=== PATIENT | female | born 1935 | race Two or more races ===

== ENCOUNTER 2018-06-11 17:22 | Inpatient (IN) | payer MEDICARE, BC ==
[~2018-06-11] VITALS: Ht 172.7 cm; Wt 72.6 kg
--- NOTE | ~2018-06-11 | MORECARE ---
CASE MANAGEMENT DISCHARGE SUMMARY PATIENT: KAREN CAROLINA UNIT: [id number] ADM DATE: 06/11/18 AGE: 82 : 36 SEX: F ROOM/BED: [facility] AUTHOR: TAWANDA,DOC PHYSICIAN: REFERRING PHYSICIAN: CAROL FLOYD MD DATE OF SERVICE: 06/15/18 Discharge Plan Patient Name: KAREN CAROLINA Facility: [facility]:[place] : 1935 Planned Disposition: Anticipated Discharge Date: Discharge Date: Expected LOS: Initial Reviewer: [email or web address] Initial Review Date: 06/12/2018 Generated: 06/15/18 11:27 am Comments DCP- Discharge Planning Updated by [email or web address]: Carol Olivo on 06/15/18 9:[address] SPOKE WITH A EMPLOYEE OF PATIENT AT THE [facility] ( [phone]) SHE STATED THAT SHE DID NOT HAVE AN OP REPORT BUT STATED THAT THE PATIENT HAD "A THROMBOSIS IN THE LEFT CAROTID, THEY OPENED IT UP REMOVED THE THROMBOSIS AND CLOSED IT" SHE STATED THAT THERE WAS NOT GRAFTS OR IMPLANTS USED SHE EMAILED AND FAXED THE RECORDS THAT SHE HAD SHE GAVE A NUMBER TO THE OR, I CALLED AND THERE WAS NOT AN ANSWER [phone] (PHONE NUMBER) I SPOKE WITH BETO SHARMA TO LET HER KNOW THE ABOVE DCP- Discharge Planning Updated by [email or web address]: Carol Olivo on 06/13/18 10:[address] I CALLED [facility] IN [facility] SPOKE WITH Abelardo PINA ([phone]) SHE STATED THAT SHE WOULD FAX ME THE OP REPORT HOSPITAL NUMBER IS [phone] YOU MUST DIAL [phone] THEN THE NUMBER I TOLD SOHA THE ABOVE CM WILL CONTINUE TO FOLLOW AND ASSIST DCP- Discharge Planning Updated by [email or web address]: Loly Lugo on 06/12/18 1:[address] Patient Name: KAREN CAROLINA Admission Status: Urgent Accout number: [id number] Admission Date: 06-11-2018 : 1935 Admission Diagnosis: Attending: MARIEL, Current LOS: 1 Anticipated DC Date: Planned Disposition: Primary Insurance: MEDICARE A & B Discharge Planning Comments: CM MET WITH PATIENT ABOUT DC PLANNING/NEEDS. PLANS TO DC TO HOME WITH AFTER SURGERY. WAS VISITING FAMILY IN [place] AND HAD A SURGICAL PROCEDURE, CAME BACK TO [place], AND THEN [facility] SURGICAL SITE BECAME INFECTED. SHE STATES PLAN IS TO HAVE SURGERY TOMORROW. [facility] DOESN'T KNOW OF ANY NEEDS AT THIS TIME. CM WILL FOLLOW AND ASSIST NEEDED WITH DC PLANNING/NEEDS. Certified Medical Aide: Loly Lugo DCPIA - Discharge Planning Initial Assessment Updated by [email or web address]: Loly Lugo on 06/12/18 2:30 pm * Is the patient Alert and Oriented? Yes * PCP MARIEL * [facility] * Preadmission Environment Home with Family * ADLs Independent * Equipment None * List name and contact numbers for known caregivers / representatives who currently or will assist patient after discharge: GABRIEL SANTIAGO, * Community resources currently utilized None * Can the patient safely return to the preadmission environment? Yes Last DP export: 06/13/18 10:38 Patient Name: KAREN CAROLINA Page 30503 at 1027 All edits/amendments must be made on the electronic document DICTATION DATE: 06/15/18 1027 WIPING CLOTH CUTTER: JEANCARLOS 06/15/18 1027 RPT#: [id number] DC DATE: STATUS: ADM IN [facility] [address] [place] [address] END OF REPORT
--- NOTE | ~2018-06-11 | OP ---
PATIENT NAME: KAREN CAROLINA MEDICAL RECORD: [id number] :[birth year] LOCATION:D.CVI D.CV02 ADMISSION DATE:06/11/18 SURGEON: SABRINA SOLANO MD DATE OF OPERATION: 06/13/2018 SURGEON: Sabrina Solano MD ROOFING LABORER: Saravanan Martell MD ANESTHESIA: General endotracheal, Dr. Swain. OPERATION PERFORMED: 1. Exploration of left carotid endarterectomy incision. 2. Debridement of skin and subcutaneous tissues. 3. Drainage utilizing a 7 fluted flat drain. POSTOPERATIVE DIAGNOSIS: Superficial wound infection. INDICATION FOR OPERATION: Draining left endarterectomy incision. FINDINGS OF THE OPERATION: The left carotid endarterectomy incision along the anterior border of the sternocleidomastoid was draining culture positive for Staph and the entire wound was erythematous. The exploration demonstrated the sternocleidomastoid sutured to the paratracheal tissues and was not infected or involved with the superficial infection. ESTIMATED BLOOD LOSS: Less than 50 mL. DESCRIPTION OF PROCEDURE: After informed consent, adequate preoperative medication evaluation, the patient was brought to the operating room, placed on the table in the supine position. After induction of general endotracheal anesthesia and application of appropriate monitoring devices, left neck, chest, both groins were prepped and draped in sterile field, utilizing Betadine scrub, alcohol, and Betadine solution. A Betadine-impregnated drape was also used. The draining site at the lower part of the incision was opened and examined, the wound was incised further cephalad without having to make an incision. The Monocryl was removed as was the subcutaneous Vicryl suture. There was separation and infection involving the edges of the wound and in the superficial plane. The wound had been closed by a first layer of sutures from the sternocleidomastoid to the paratracheal tissues. Deep to this plane was not involved with the infection, it was all superficial. Therefore, the skin underwent excision bilaterally as well as debridement of the deep subcutaneous tissues. The plane below the sternocleidomastoid was not entered. A #7 fluted flat drain was left in the wound and brought out through the base of the neck. Neck was again irrigated with copious amounts of antibiotic solution and normal saline. Hemostasis was achieved and the wound was closed in layers utilizing 3-0 PDS on the platysma. The skin was closed with interrupted nylon sutures. Sterile dressings were applied. The patient tolerated the procedure well and was transferred to cardiovascular recovery in stable condition. TRANSINT:[id number] Voice Confirmation ID: [id number] DOCUMENT ID: [id number] OPERATIVE REPORT [id number] KAREN CAROLINA EDWARD MD at 1216 CC: [id number] DICTATION DATE: 06/13/18 142 HEMODIALYSIS LAB TECHNICIAN: 06/13/18 1452 ADM IN [place] [id number] [place] [id number]
--- NOTE | ~2018-06-11 | MORECARE ---
CASE MANAGEMENT DISCHARGE SUMMARY PATIENT: KAREN CAROLINA UNIT: [id number] ADM DATE: 06/11/18 AGE: 82 : 36 SEX: F ROOM/BED: D.2223 AUTHOR: TAWANDA,DOC PHYSICIAN: REFERRING PHYSICIAN: CAROL FLOYD MD DATE OF SERVICE: 06/13/18 Discharge Plan Patient Name: KAREN CAROLINA Facility: [facility]:[place] : 1935 Planned Disposition: Anticipated Discharge Date: Discharge Date: Expected LOS: Initial Reviewer: [email or web address] Initial Review Date: 06/12/2018 Generated: 06/13/18 12:38 pm Comments DCP- Discharge Planning Updated by [email or web address]: Carol Olivo on 06/13/18 10:[address] I CALLED [facility] IN [facility] SPOKE WITH A YOVANI ([phone]) SHE STATED THAT SHE WOULD FAX ME THE OP REPORT HOSPITAL NUMBER IS [phone] YOU MUST DIAL [phone]+011 THEN THE NUMBER I TOLD MACI AND IMANI THE ABOVE CM WILL CONTINUE TO FOLLOW AND ASSIST DCP- Discharge Planning Updated by [id number]: Loly Lugo on 06/12/18 1:[address] Patient Name: KAREN CAROLINA Admission Status: Urgent Accout number: [id number] Admission Date: 06-11-2018 : 1935 Admission Diagnosis: Attending: MARIEL, Current LOS: 1 Anticipated DC Date: Planned Disposition: Primary Insurance: MEDICARE A & B Discharge Planning Comments: CM MET WITH PATIENT ABOUT DC PLANNING/NEEDS. [facility] PLANS TO DC TO HOME WITH AFTER SURGERY. WAS VISITING FAMILY IN [place] AND HAD A SURGICAL PROCEDURE, CAME BACK TO [place], AND THEN [facility] SURGICAL SITE BECAME INFECTED. SHE STATES PLAN IS TO HAVE SURGERY TOMORROW. [facility] DOESN'T KNOW OF ANY NEEDS AT THIS TIME. CM WILL FOLLOW AND ASSIST NEEDED WITH DC PLANNING/NEEDS. Senior Medical Transcriptionist: Loly Lugo DCPIA - Discharge Planning Initial Assessment Updated by [id number]: Loly Lugo on 06/12/18 2:30 pm * Is the patient Alert and Oriented? Yes * PCP MARIEL * [facility] * Preadmission Environment Home with Family * ADLs Independent * Equipment None * List name and contact numbers for known caregivers / representatives who currently or will assist patient after discharge: JACK, , * Community resources currently utilized None * Can the patient safely return to the preadmission environment? Yes Last DP export: 06/12/18 1:33 Patient Name: KAREN CAROLINA Page 61751 at 1138 All edits/amendments must be made on the electronic document DICTATION DATE: 06/13/18 113 FOREST SCIENCE PROFESSOR: JEANCARLOS 06/13/181137 RPT#: [id number] DC DATE: STATUS: ADM IN [facility] [address] [place] [address] END OF REPORT
--- NOTE | ~2018-06-11 | HP ---
PATIENT: KAREN CAROLINA MEDICAL RECORD: [id number] ACCOUNT: [id number] LOCATION:[facility]ino[facility] : [birth year] ADMISSION DATE: 06/11/18 PCP: CAROL FLOYD MD HISTORY AND PHYSICAL EXAMINATION CHIEF COMPLAINT: Abscess. HISTORY OF PRESENT ILLNESS: An 82-year-old white female, patient of mine, presents to clinic this afternoon with cellulitis of left neck incision and draining pus. She was recently in [place] on vacation and had a TIA, was admitted to the hospital there, later had a CEA done. The procedure was done at the bedside under local anesthesia. They do have some hospital records now with them; however, the records are in [place]onian. I spoke with Dr. Lopez over the phone. At this time, we will admit to the hospital and culture for further workup. REVIEW OF SYSTEMS: CONSTITUTIONAL: No fever or chills. HEENT: No ear pain or sore throat. CARDIOVASCULAR: No chest pain. RESPIRATORY: No cough or wheeze. GASTROINTESTINAL: No nausea, vomiting, or diarrhea. GENITOURINARY: No dysuria. MUSCULOSKELETAL: No back pain. SKIN: Positive for rash. NEUROLOGIC: No dizziness, headache, or weakness. PAST MEDICAL HISTORY: Carotid artery stenosis, TIA, and hypertension. PAST SURGICAL HISTORY: Left CEA and hysterectomy. MEDICATIONS: Atorvastatin 10 mg p.o. at bedtime, aspirin 81 mg a day, lisinopril with hydrochlorothiazide 10/12.5 two tabs daily. ALLERGIES: PENICILLIN. SOCIAL HISTORY: The patient lives with her at home here in [place]. Nonsmoker and nondrinker. FAMILY HISTORY: Noncontributory. PHYSICAL EXAMINATION: GENERAL: No acute distress. HEENT: Normocephalic. Left side of the neck with healing incision from CEA, is very erythematous, swollen, draining pus in 3 different spots. NECK: As above. CARDIOVASCULAR: Regular rate and rhythm. II/ systolic ejection murmur. LUNGS: Clear to auscultation bilaterally. ABDOMEN: Soft and nontender to palpation. Bowel sounds positive. GENITOURINARY: No Ward. MUSCULOSKELETAL: Full range of motion. NEUROLOGIC: Awake, alert, and oriented times 3. EXTREMITIES: No clubbing, cyanosis, or edema. ASSESSMENT: HISTORY AND PHYSICAL [id number] KAREN CAROLINA 1. Carotid artery stenosis, status post CEA 5 weeks ago in [place]. 2. TIA, on aspirin and statin. 3. Cellulitis of left-sided neck where CEA was. PLAN: We will admit the patient to the hospital. Consult Dr. Lopez. Get wound cultures, blood cultures, and CTA of carotid arteries. Start the patient on IV vancomycin. Other orders as on chart. TRANSINT:[id number] Voice Confirmation ID: [id number] DOCUMENT ID: [id number] CAROL FLOYD MD at 1814 CC: [id number] DICTATION DATE: 06/11/18 1650 ASSET PROTECTION REPRESENTATIVE: 06/11/18 1717 ADM IN [place] [id number] [place] [id number]
--- NOTE | ~2018-06-11 | MORECARE ---
CASE MANAGEMENT DISCHARGE SUMMARY PATIENT: KAREN CAROLINA UNIT: [id number] ADM DATE: 06/11/18 AGE: 82 : 36 SEX: F ROOM/BED: D.2223 AUTHOR: RUDI NEFF PHYSICIAN: REFERRING PHYSICIAN: CAROL FLOYD MD DATE OF SERVICE: 06/12/18 Discharge Plan Patient Name: KAREN CAROLINA Facility: [facility]:[place] : 1935 Planned Disposition: Anticipated Discharge Date: Discharge Date: Expected LOS: Initial Reviewer: [email or web address] Initial Review Date: 06/12/2018 Generated: 06/12/18 3:33 pm Comments DCP- Discharge Planning Updated by [email or web address]: Loly Lugo on 06/12/18 1:[address] Patient Name: KAREN CAROLINA Admission Status: Urgent Accout number: [id number] Admission Date: 06-11-2018 : 1935 Admission Diagnosis: Attending: MARIEL, Current LOS: 1 Anticipated DC Date: Planned Disposition: Primary Insurance: MEDICARE A & B Discharge Planning Comments: CM MET WITH PATIENT ABOUT DC PLANNING/NEEDS. PLANS TO DC TO HOME WITH AFTER SURGERY. WAS VISITING FAMILY IN [place] AND HAD A SURGICAL PROCEDURE, CAME BACK TO [place], AND THEN [facility] SURGICAL SITE BECAME INFECTED. SHE STATES PLAN IS TO HAVE SURGERY TOMORROW. [facility] DOESN'T KNOW OF ANY NEEDS AT THIS TIME. CM WILL FOLLOW AND ASSIST NEEDED WITH DC PLANNING/NEEDS. Oracle Developer: Loly Lugo DCPIA - Discharge Planning Initial Assessment Updated by [email or web address]: Loly Lugo on 06/12/18 2:30 pm * Is the patient Alert and Oriented? Yes * PCP MARIEL * [facility] * Preadmission Environment Home with Family * ADLs Independent * Equipment None * List name and contact numbers for known caregivers / representatives who currently or will assist patient after discharge: GABRIEL SANTIAGO, * Community resources currently utilized None * Can the patient safely return to the preadmission environment? Yes Patient Name: KAREN CAROLINA Page 41070 at 1433 All edits/amendments must be made on the electronic document DICTATION DATE: 06/12/181431 COMMUNICATION ANALYST: JEANCARLOS 06/12/181431 RPT#: [id number] DC DATE: STATUS: ADM IN [facility] [address] [place] [address] END OF REPORT
--- NOTE | ~2018-06-11 | MORECARE ---
CASE MANAGEMENT DISCHARGE SUMMARY PATIENT: KAREN CAROLINA UNIT: [id number] ADM DATE: 06/11/18 AGE: 82 : 36 SEX: F ROOM/BED: [facility] AUTHOR: TAWANDA,DOC PHYSICIAN: REFERRING PHYSICIAN: CAROL FLOYD MD DATE OF SERVICE: 06/19/18 Discharge Plan Patient Name: KAREN CAROLINA Facility: [facility]:[place] : 1935 Planned Disposition: Anticipated Discharge Date: Discharge Date: 06/19/2018 Expected LOS: Initial Reviewer: [email or web address] Initial Review Date: 06/12/2018 Generated: 06/19/18 4:38 pm DCP- Discharge Planning Updated by [id number]: Carol Olivo on 06/15/18 9:[address] SPOKE WITH A EMPLOYEE OF PATIENT AT THE [facility] ( [phone]) SHE STATED THAT SHE DID NOT HAVE AN OP REPORT BUT STATED THAT THE PATIENT HAD "A THROMBOSIS IN THE LEFT CAROTID, THEY OPENED IT UP REMOVED THE THROMBOSIS AND CLOSED IT" SHE STATED THAT THERE WAS NOT GRAFTS OR IMPLANTS USED SHE EMAILED AND FAXED THE RECORDS THAT SHE HAD SHE GAVE A NUMBER TO THE OR, I CALLED AND THERE WAS NOT AN ANSWER [phone] (PHONE NUMBER) I SPOKE WITH BETO SHARMA TO LET HER KNOW THE ABOVE DCP- Discharge Planning Updated by [email or web address]: Carol Olivo on 06/13/18 10:[address] I CALLED [facility] [place] [facility] SPOKE WITH A YOVANI ([phone]) SHE STATED THAT SHE WOULD FAX ME THE OP REPORT HOSPITAL NUMBER IS [phone] YOU MUST DIAL 9+011 THEN THE NUMBER I TOLD SOHA THE ABOVE CM WILL CONTINUE TO FOLLOW AND ASSIST DCP- Discharge Planning Updated by [email or web address]: Loly Lugo on 06/12/18 1:[address] Patient Name: KAREN CAROLINA Admission Status: Urgent Accout number: [id number] Admission Date: 06-11-2018 : 1935 Admission Diagnosis: Attending: MARIEL, Current LOS: 1 Anticipated DC Date: Planned Disposition: Primary Insurance: MEDICARE A & B Discharge Planning Comments: CM MET WITH PATIENT ABOUT DC PLANNING/NEEDS. PLANS TO DC TO HOME WITH AFTER SURGERY. WAS VISITING FAMILY IN [place] AND HAD A SURGICAL PROCEDURE, CAME BACK TO [place], AND THEN [facility] SURGICAL SITE BECAME INFECTED. SHE STATES PLAN IS TO HAVE SURGERY TOMORROW. DOESN'T KNOW OF ANY NEEDS AT THIS TIME. CM WILL FOLLOW AND ASSIST NEEDED WITH DC PLANNING/NEEDS. Stave Machine Tender: Loly Lugo DCPIA - Discharge Planning Initial Assessment Updated by [email or web address]: Loly Lugo on 06/12/18 2:30 pm * Is the patient Alert and Oriented? Yes * PCP MARIEL * [facility] * Preadmission Environment Home with Family * ADLs Independent * Equipment None * List name and contact numbers for known caregivers / representatives who currently or will assist patient after discharge: GABRIEL SANTIAGO, * Community resources currently utilized None * Can the patient safely return to the preadmission environment? Yes Coverage Notice Reviewer: [id number] Sabina Hall Notice Issued Date-Time: 06/19/2018 12:40 Notice Type: IM Discharge Notice Notice Delivered To: Patient Relationship to Patient: Self Dye Penetrant Testing Technician Name: Delivery Method: HAND - Hand Delivered Billie Days: Prior Verbal Notification: Recipient Understood Notice: Yes Recipient Signature: Yes Med Rec Note Co-signed by Attending: Coverage Notice Comment: Last DP export: 06/15/18 9:27 Patient Name: KAREN CAROLINA Page 56760 at 1539 All edits/amendments must be made on the electronic document DICTATION DATE: 06/19/181537 OVEN TECHNICIAN: JEANCARLOS 06/19/181537 RPT#: [id number] DC DATE:06/19/18 STATUS: DIS IN [facility] [address] [place] [address] END OF REPORT
[2018-06-11] MEDS ORDERED: PRINZIDE 20/12.1 TA1 PO (17:46)
[2018-06-11] MEDS ORDERED: LIPITOR10 MG PO (17:47)
[2018-06-11] MEDS ORDERED: COENZYME Q1050 MG PO (17:48)
[2018-06-11 18:00] VITALS: BP 164/74; BMI 23.6
[2018-06-11 18:37] LABS: BASOPHILS 0.3 % (0-2); EOSINOPHILS 6.3 % (0-7); HEMATOCRIT 40.2 % (36.0-48.0); HEMOGLOBIN 13.8 g/dL (12-16); IMMATURE GRANULOCYTES 0.3 % (0-5); MCH 31.6 pg (26.0-34.0); MCHC 34.3 g/dL (31.0-37.0); MEAN PLATELET VOLUME 8.8 fL (7.4-10.4); MONOCYTES 10.4 % (2-11); NEUTROPHILS 59.7 % (40-80); PLATELET COUNT 354 10x3/uL (130-400); RBC 4.37 10x6/uL (4.00-5.40); RDW 12.5 % (11.5-14.5); WBC 10.6 10x3/uL (4.8-10.8)
[2018-06-11 18:49] LABS: ALBUMIN 3.8 g/dL (3.4-5.0); ANION GAP 15.9 mmol/L (8-16); BILIRUBIN - TOTAL 0.24 mg/dL (0.2-1.3); CALCIUM 9.5 mg/dL (8.5-10.1); CREATININE - SERUM 0.8 mg/dL (0.6-1.3); POTASSIUM - SERUM 3.9 mmol/L (3.5-5.1); PROTEIN - SERUM 7.5 g/dL (6.4-8.2)
[2018-06-11 18:55] LABS: INR 0.9 (0.85-1.17); PROTIME 11.8 SECONDS (11.6-15.0)
[2018-06-11 20:00] VITALS: BP 142/68
[2018-06-12 04:11] VITALS: BP 127/51
[2018-06-12 06:21] LABS: BILIRUBIN - TOTAL 0.35 mg/dL (0.2-1.3); CALCIUM 8.9 mg/dL (8.5-10.1); CARBON DIOXIDE 26.8 mmol/L (21.0-32.0); CREATININE - SERUM 0.9 mg/dL (0.6-1.3); POTASSIUM - SERUM 3.8 mmol/L (3.5-5.1); PROTEIN - SERUM 6.1 g/dL (6.4-8.2)
[2018-06-12 06:33] LABS: BASOPHILS 0.3 % (0-2); EOSINOPHILS 8.2 % (0-7); HEMATOCRIT 35.8 % (36.0-48.0); HEMOGLOBIN 11.9 g/dL (12-16); IMMATURE GRANULOCYTES 0.3 % (0-5); MCH 30.9 pg (26.0-34.0); MCHC 33.2 g/dL (31.0-37.0); MEAN PLATELET VOLUME 8.9 fL (7.4-10.4); MONOCYTES 11.7 % (2-11); NEUTROPHILS 50.5 % (40-80); PLATELET COUNT 341 10x3/uL (130-400); RBC 3.85 10x6/uL (4.00-5.40); RDW 12.6 % (11.5-14.5); WBC 9.5 10x3/uL (4.8-10.8)
[2018-06-12 08:33] VITALS: BP 168/69
[2018-06-12 11:55] VITALS: BP 148/72
[2018-06-12 15:04] LABS: HEMATOCRIT 36.8 % (36.0-48.0); HEMOGLOBIN 12.3 g/dL (12-16); MCH 31.2 pg (26.0-34.0); MCHC 33.4 g/dL (31.0-37.0); MCV 93.4 fL (80.0-100.0); MEAN PLATELET VOLUME 8.5 fL (7.4-10.4); RBC 3.94 10x6/uL (4.00-5.40); RDW 12.4 % (11.5-14.5); WBC 8.8 10x3/uL (4.8-10.8)
[2018-06-12 15:13] LABS: APTT 23.4 SECONDS (22.8-39.4); INR 1.03 (0.85-1.17); PROTIME 13.1 SECONDS (11.6-15.0)
[2018-06-12 15:21] LABS: ANION GAP 13.5 mmol/L (8-16); BILIRUBIN - TOTAL 0.3 mg/dL (0.2-1.3); CALCIUM 8.5 mg/dL (8.5-10.1); CARBON DIOXIDE 27.6 mmol/L (21.0-32.0); CREATININE - SERUM 0.8 mg/dL (0.6-1.3); POTASSIUM - SERUM 4.1 mmol/L (3.5-5.1); PROTEIN - SERUM 5.7 g/dL (6.4-8.2)
[2018-06-12 15:53] LABS: APPEARANCE CLEAR (CLEAR); BILIRUBIN NEGATIVE (NEGATIVE); COLOR YELLOW (YELLOW); GLUCOSE NEGATIVE (NEGATIVE); KETONE NEGATIVE (NEGATIVE); NITRITE NEGATIVE (NEGATIVE); PROTEIN NEGATIVE (NEGATIVE); SPECIFIC GRAVITY 1.015 (1.005-1.020); UROBILINOGEN NORMAL (NORMAL)
[2018-06-12 16:41] VITALS: BP 113/55
[2018-06-12 20:00] VITALS: BP 133/66
[2018-06-13] VITALS (42 sets, daily range): BP systolic 109–175; BP diastolic 45–82
[2018-06-13 06:14] LABS: BASOPHILS 0.4 % (0-2); HEMATOCRIT 36.3 % (36.0-48.0); HEMOGLOBIN 12.1 g/dL (12-16); IMMATURE GRANULOCYTES 0.3 % (0-5); LYMPHOCYTES 27.1 % (15-50); MCH 31.1 pg (26.0-34.0); MCHC 33.3 g/dL (31.0-37.0); MCV 93.3 fL (80.0-100.0); MEAN PLATELET VOLUME 8.9 fL (7.4-10.4); MONOCYTES 10.2 % (2-11); PLATELET COUNT 366 10x3/uL (130-400); RBC 3.89 10x6/uL (4.00-5.40); RDW 12.5 % (11.5-14.5); WBC 10.2 10x3/uL (4.8-10.8)
[2018-06-13 06:33] LABS: ALBUMIN 2.9 g/dL (3.4-5.0); ALKALINE PHOSPHATASE 50 U/L (46-116); ALT (SGPT) 15 U/L (10-68); BILIRUBIN - TOTAL 0.34 mg/dL (0.2-1.3); CALC OSMOLALITY 279 mosm/kg (275-300); CALCIUM 8.8 mg/dL (8.5-10.1); CARBON DIOXIDE 26.4 mmol/L (21.0-32.0); CHLORIDE - SERUM 105 mmol/L (98-107); CREATININE - SERUM 0.7 mg/dL (0.6-1.3); GLUCOSE 99 mg/dL (74-106); POTASSIUM - SERUM 3.7 mmol/L (3.5-5.1); PROTEIN - SERUM 5.9 g/dL (6.4-8.2); SODIUM 141 mmol/L (136-145); UREA NITROGEN 10 mg/dL (7-18); VANCOMYCIN - TROUGH 15.7 ug/mL (10.0-20.0); eGFR NON AFRICAN AMERICAN 85 mL/min (90-120)
[2018-06-14] VITALS (61 sets, daily range): BP systolic 104–163; BP diastolic 40–74
[2018-06-14 06:19] LABS: BASOPHILS 0.3 % (0-2); EOSINOPHILS 3.8 % (0-7); HEMATOCRIT 30.9 % (36.0-48.0); HEMOGLOBIN 10.3 g/dL (12-16); IMMATURE GRANULOCYTES 0.3 % (0-5); LYMPHOCYTES 19.1 % (15-50); MCH 30.8 pg (26.0-34.0); MCHC 33.3 g/dL (31.0-37.0); MCV 92.5 fL (80.0-100.0); MEAN PLATELET VOLUME 8.3 fL (7.4-10.4); MONOCYTES 10.1 % (2-11); NEUTROPHILS 66.4 % (40-80); PLATELET COUNT 309 10x3/uL (130-400); RBC 3.34 10x6/uL (4.00-5.40); RDW 12.3 % (11.5-14.5)
[2018-06-14 06:27] LABS: WBC 13.6 10x3/uL (4.8-10.8)
[2018-06-14 06:51] LABS: ALBUMIN 2.5 g/dL (3.4-5.0); BILIRUBIN - TOTAL 0.45 mg/dL (0.2-1.3); CALCIUM 8.2 mg/dL (8.5-10.1); CARBON DIOXIDE 30.4 mmol/L (21.0-32.0); CREATININE - SERUM 0.8 mg/dL (0.6-1.3); POTASSIUM - SERUM 3.4 mmol/L (3.5-5.1); PROTEIN - SERUM 5.2 g/dL (6.4-8.2)
[2018-06-15] VITALS (24 sets, daily range): BP systolic 108–161; BP diastolic 42–76; Ht 172.7 cm; Wt 72.6 kg
[2018-06-15 06:14] LABS: BASOPHILS 0.2 % (0-2); EOSINOPHILS 8.3 % (0-7); HEMATOCRIT 32.8 % (36.0-48.0); HEMOGLOBIN 11.1 g/dL (12-16); IMMATURE GRANULOCYTES 0.2 % (0-5); LYMPHOCYTES 19.3 % (15-50); MCH 31.3 pg (26.0-34.0); MCHC 33.8 g/dL (31.0-37.0); MCV 92.4 fL (80.0-100.0); MEAN PLATELET VOLUME 8.4 fL (7.4-10.4); MONOCYTES 10.8 % (2-11); NEUTROPHILS 61.2 % (40-80); PLATELET COUNT 320 10x3/uL (130-400); RBC 3.55 10x6/uL (4.00-5.40); RDW 12.4 % (11.5-14.5); WBC 11.6 10x3/uL (4.8-10.8)
[2018-06-15 06:41] LABS: ALBUMIN 2.7 g/dL (3.4-5.0); ANION GAP 9.4 mmol/L (8-16); BILIRUBIN - TOTAL 0.37 mg/dL (0.2-1.3); CALCIUM 8.6 mg/dL (8.5-10.1); CARBON DIOXIDE 31.3 mmol/L (21.0-32.0); CREATININE - SERUM 0.8 mg/dL (0.6-1.3); POTASSIUM - SERUM 3.7 mmol/L (3.5-5.1); PROTEIN - SERUM 5.7 g/dL (6.4-8.2)
[2018-06-16] VITALS (22 sets, daily range): BP systolic 119–152; BP diastolic 33–75
[2018-06-16 05:52] LABS: BASOPHILS 0.3 % (0-2); EOSINOPHILS 8.7 % (0-7); HEMATOCRIT 33.5 % (36.0-48.0); HEMOGLOBIN 11.6 g/dL (12-16); IMMATURE GRANULOCYTES 0.3 % (0-5); LYMPHOCYTES 23.8 % (15-50); MCHC 34.6 g/dL (31.0-37.0); MCV 92.3 fL (80.0-100.0); MEAN PLATELET VOLUME 8.4 fL (7.4-10.4); MONOCYTES 9.7 % (2-11); NEUTROPHILS 57.2 % (40-80); PLATELET COUNT 324 10x3/uL (130-400); RBC 3.63 10x6/uL (4.00-5.40); RDW 12.4 % (11.5-14.5); WBC 10.6 10x3/uL (4.8-10.8)
[2018-06-16 06:09] LABS: ALBUMIN 2.8 g/dL (3.4-5.0); ANION GAP 9.9 mmol/L (8-16); BILIRUBIN - TOTAL 0.3 mg/dL (0.2-1.3); CALCIUM 8.7 mg/dL (8.5-10.1); CARBON DIOXIDE 31.7 mmol/L (21.0-32.0); CREATININE - SERUM 0.8 mg/dL (0.6-1.3); POTASSIUM - SERUM 3.6 mmol/L (3.5-5.1); PROTEIN - SERUM 6.1 g/dL (6.4-8.2)
[2018-06-17] VITALS (22 sets, daily range): BP systolic 122–165; BP diastolic 56–83
[2018-06-17 05:58] LABS: BASOPHILS 0.4 % (0-2); EOSINOPHILS 10.1 % (0-7); HEMATOCRIT 34.3 % (36.0-48.0); HEMOGLOBIN 11.6 g/dL (12-16); IMMATURE GRANULOCYTES 0.3 % (0-5); MCH 31.1 pg (26.0-34.0); MCHC 33.8 g/dL (31.0-37.0); MEAN PLATELET VOLUME 8.5 fL (7.4-10.4); MONOCYTES 8.9 % (2-11); NEUTROPHILS 55.3 % (40-80); PLATELET COUNT 358 10x3/uL (130-400); RBC 3.73 10x6/uL (4.00-5.40); RDW 12.4 % (11.5-14.5); WBC 9.4 10x3/uL (4.8-10.8)
[2018-06-17 06:21] LABS: ALBUMIN 2.8 g/dL (3.4-5.0); ALKALINE PHOSPHATASE 56 U/L (46-116); ALT (SGPT) 9 U/L (10-68); BILIRUBIN - TOTAL 0.21 mg/dL (0.2-1.3); CALC OSMOLALITY 277 mosm/kg (275-300); CALCIUM 8.9 mg/dL (8.5-10.1); CARBON DIOXIDE 32.5 mmol/L (21.0-32.0); CHLORIDE - SERUM 102 mmol/L (98-107); CREATININE - SERUM 0.7 mg/dL (0.6-1.3); GLUCOSE 101 mg/dL (74-106); POTASSIUM - SERUM 3.9 mmol/L (3.5-5.1); PROTEIN - SERUM 6.2 g/dL (6.4-8.2); SODIUM 140 mmol/L (136-145); UREA NITROGEN 10 mg/dL (7-18); eGFR NON AFRICAN AMERICAN 85 mL/min (90-120)
[2018-06-18] VITALS (21 sets, daily range): BP systolic 114–160; BP diastolic 46–81
[2018-06-18 06:21] LABS: BASOPHILS 0.5 % (0-2); EOSINOPHILS 8.9 % (0-7); HEMATOCRIT 35.4 % (36.0-48.0); HEMOGLOBIN 11.8 g/dL (12-16); IMMATURE GRANULOCYTES 0.3 % (0-5); LYMPHOCYTES 27.9 % (15-50); MCH 30.8 pg (26.0-34.0); MCHC 33.3 g/dL (31.0-37.0); MCV 92.4 fL (80.0-100.0); MEAN PLATELET VOLUME 8.3 fL (7.4-10.4); MONOCYTES 8.2 % (2-11); NEUTROPHILS 54.2 % (40-80); PLATELET COUNT 373 10x3/uL (130-400); RBC 3.83 10x6/uL (4.00-5.40); RDW 12.4 % (11.5-14.5); WBC 9.6 10x3/uL (4.8-10.8)
[2018-06-18 06:43] LABS: ALBUMIN 2.9 g/dL (3.4-5.0); ANION GAP 11.5 mmol/L (8-16); BILIRUBIN - TOTAL 0.2 mg/dL (0.2-1.3); CARBON DIOXIDE 29.5 mmol/L (21.0-32.0); CREATININE - SERUM 0.8 mg/dL (0.6-1.3); PROTEIN - SERUM 6.3 g/dL (6.4-8.2)
[2018-06-19] VITALS (7 sets, daily range): BP systolic 133–147; BP diastolic 60–71
[2018-06-19 06:24] LABS: BASOPHILS 0.5 % (0-2); HEMATOCRIT 34.8 % (36.0-48.0); HEMOGLOBIN 11.8 g/dL (12-16); IMMATURE GRANULOCYTES 0.4 % (0-5); LYMPHOCYTES 28.2 % (15-50); MCH 31.1 pg (26.0-34.0); MCHC 33.9 g/dL (31.0-37.0); MCV 91.8 fL (80.0-100.0); MEAN PLATELET VOLUME 8.3 fL (7.4-10.4); MONOCYTES 11.1 % (2-11); NEUTROPHILS 50.8 % (40-80); PLATELET COUNT 360 10x3/uL (130-400); RBC 3.79 10x6/uL (4.00-5.40); RDW 12.4 % (11.5-14.5); WBC 9.4 10x3/uL (4.8-10.8)
[2018-06-19 06:36] LABS: ALBUMIN 2.9 g/dL (3.4-5.0); ANION GAP 11.2 mmol/L (8-16); BILIRUBIN - TOTAL 0.25 mg/dL (0.2-1.3); CARBON DIOXIDE 29.9 mmol/L (21.0-32.0); CREATININE - SERUM 0.8 mg/dL (0.6-1.3); POTASSIUM - SERUM 4.1 mmol/L (3.5-5.1); PROTEIN - SERUM 6.3 g/dL (6.4-8.2)
[2018-06-19] MEDS ORDERED: LOPRESSOR25 MG PO (10:16)
[2018-06-19] MEDS ORDERED: KEFLEX500 MG PO (10:18)
== END 2018-06-19 14:47 | disposition home or self-care (01) | DRG 857 ==
LOC: D.CVICU 17:22 → D.MS 17:22 → D.CVICU 06-13 12:48
PROVIDERS: Emergency Medicine; Family Medicine; Internal Medicine Cardiovascular Disease; Thoracic Surgery (Cardiothoracic Vascular Surgery)
PROC: 0W9B00Z Drainage of Left Pleural Cavity with Drainage Device, Open Approach (ICD-10-PCS; 2018-06-13)
PROC: 0JB60ZZ Excision of Chest Subcutaneous Tissue and Fascia, Open Approach (ICD-10-PCS; principal; 2018-06-13 11:00)
DX: T81.49XA Infection following a procedure, other surgical site, initial encounter (principal); L03.221 Cellulitis of neck; B95.61 Methicillin susceptible Staphylococcus aureus infection as the cause of diseases classified elsewhere; I48.91 Unspecified atrial fibrillation; Z86.73 Personal history of transient ischemic attack (TIA), and cerebral infarction without residual deficits

== ENCOUNTER 2019-01-25 15:57 | Inpatient (IN) | payer MEDICARE, BC | END 2019-01-28 14:37 | disposition home or self-care (01) | DRG 308 | LOC: D.M2 15:57 | PROVIDERS: ADMIT Family Medicine | DX: I48.0 Paroxysmal atrial fibrillation (principal); J15.9 Unspecified bacterial pneumonia; E87.1 Hypo-osmolality and hyponatremia; I10 Essential (primary) hypertension; R00.0 Tachycardia, unspecified; R00.1 Bradycardia, unspecified; Z86.73 Personal history of transient ischemic attack (TIA), and cerebral infarction without residual deficits ==

== ENCOUNTER → 2019-04-30 15:10 | Outpatient (CLI) | payer MEDICARE, BC ==
[2019-01-26 12:07] VITALS: BMI 23.8
[~2019-04-30 15:10] MED LIST: BETAPACE 80 MG80 MG PO; COENZYME Q1050 MG PO; DOXYCYCLINE HY100 M2 PO; KEFLEX500 MG PO; LEVAQUIN750 MG PO; LIPITOR10 MG PO; LISINOPRIL-HCT1 EAC8 PO; LOPRESSOR25 MG PO; PRINZIDE 20/12.1 TA1 PO
== END | disposition home or self-care (01) ==
LOC: D.US 14:30
PROVIDERS: ATTEND Internal Medicine Cardiovascular Disease
DX: I65.23 Occlusion and stenosis of bilateral carotid arteries (principal)

== ENCOUNTER 2020-02-12 00:13 | Emergency (ER) | payer MEDICARE, BC ==
[~2020-02-12] VITALS: Ht 170.2 cm; Wt 70.0 kg
[2020-02-12 00:31] VITALS: Ht 170.2 cm; Wt 70.0 kg
[2020-02-12] MEDS ORDERED: ELIQUIS5 MG PO (00:34)
[2020-02-12] MEDS ORDERED: BAYER CHEWABLE81 MG PO (00:35)
[2020-02-12] MEDS ORDERED: BETAPACE 80 MG80 MG PO (00:35)
[2020-02-12 01:36] LABS: BASOPHILS 0.4 % (0-2); HEMATOCRIT 44.3 % (36.0-48.0); IMMATURE GRANULOCYTES 0.3 % (0-5); LYMPHOCYTES 20.4 % (15-50); MCH 30.7 pg (26.0-34.0); MCHC 33.9 g/dL (31.0-37.0); MCV 90.8 fL (80.0-100.0); MEAN PLATELET VOLUME 8.9 fL (7.4-10.4); MONOCYTES 9.5 % (2-11); NEUTROPHILS 65.4 % (40-80); PLATELET COUNT 313 10x3/uL (130-400); RBC 4.88 10x6/uL (4.00-5.40); RDW 13.1 % (11.5-14.5); WBC 11.6 10x3/uL (4.8-10.8)
[2020-02-12 01:51] LABS: APTT 25.3 SECONDS (22.8-39.4); INR 0.92 (0.85-1.17); PROTIME 12.3 SECONDS (11.6-15.0)
[2020-02-12 01:57] LABS: CALC OSMOLALITY 277 mosm/kg (275-300); CALCIUM 9.8 mg/dL (8.5-10.1); CHLORIDE - SERUM 100 mmol/L (98-107); CREATININE - SERUM 0.7 mg/dL (0.6-1.3); GLUCOSE 118 mg/dL (74-106); POTASSIUM - SERUM 4.9 mmol/L (3.5-5.1); SODIUM 137 mmol/L (136-145); UREA NITROGEN 21 mg/dL (7-18); eGFR NON AFRICAN AMERICAN 85 mL/min (90-120)
[2020-02-12 02:14] LABS: ALBUMIN 4.2 g/dL (3.4-5.0); ALKALINE PHOSPHATASE 85 U/L (30-120); ALT (SGPT) 27 U/L (10-68); BILIRUBIN - TOTAL 0.39 mg/dL (0.2-1.3); CKMB 1.3 U/L (0.0-3.6); CREATINE KINASE 103 UL (21-215); MAGNESIUM - SERUM 2.1 mg/dL (1.8-2.4); PROTEIN - SERUM 7.6 g/dL (6.4-8.2)
[2020-02-12 03:01] VITALS: BP 154/67
== END 2020-02-12 03:03 | disposition home or self-care (01) ==
LOC: D.ER 00:13
PROVIDERS: Family Medicine
DX: R03.0 Elevated blood-pressure reading, without diagnosis of hypertension (principal); Z91.14 Patient's other noncompliance with medication regimen; Z86.73 Personal history of transient ischemic attack (TIA), and cerebral infarction without residual deficits; I10 Essential (primary) hypertension; R42 Dizziness and giddiness

== ENCOUNTER → 2020-05-05 09:52 | Outpatient (CLI) | payer MEDICARE, BC ==
[2020-02-12 00:31] VITALS: BMI 24.1
[~2020-05-05 09:52] MED LIST changes: +BAYER CHEWABLE81 MG PO; +ELIQUIS5 MG PO
== END | disposition home or self-care (01) ==
LOC: D.US 04-28 10:30
PROVIDERS: ATTEND Internal Medicine Cardiovascular Disease
DX: I65.21 Occlusion and stenosis of right carotid artery (principal)

== ENCOUNTER 2020-05-08 13:56 | Inpatient (IN) | payer MEDICARE, BC ==
[~2020-05-08] VITALS: Ht 170.2 cm; Wt 70.3 kg
--- NOTE | ~2020-05-08 | HEMODYNAMI ---
PATIENT:KAREN CAROLINA MEDICAL RECORD: [id number] : 37 [facility]ATION[facility] D.2137 [id number] ADMISSION DATE: 05/08/20 Generatedon:05/11/20209:52 Patient name: KAREN CAROLINA Patient #: [id number] SSN: : 1935 Date of study: 05/11/2020 Page: Of Hemodynamic Procedure Report Patient Data Patient Demographics Procedure consent was obtained First Name: KAREN Gender: Female Last Name: GE : 1935 [facility] Initial: E Age: 84 year(s) Patient #: [id number] Race: Other Additional ID: [id number] Contact details [address]: [address] [place] [address] [employer] State: [place] City: [place] Zip code: [address] Past Medical History Allergies Allergen Reaction Date Comments Reported Other allergy 05/11/2020 PCN Admission Admission Data Admission Date: 05/08/2020 Admission Time: 17:53 Admit Source: Emergency department Room #: D.2137 Lab Results Lab Result Date: 05/11/2020 Lab Result Time: 5:08 Biochemistry Name Units Result Min Max BUN mg/dl 22 --(----)-* 7 18 Creatinine mg/dl 1.1 --(--*-)-- 0.6 1.3 CBC Name Units Result Min Max Hematocrit % 41.5 -*(----)-- 42 54 Hemoglobin g/dl 14.1 --(*---)-- 13.5 17.5 Procedure Procedure Types Cath Procedure Diagnostic Procedure Cardioversion External Procedure Description Procedure Date Procedure Date: 05/11/2020 Procedure Start Time: 9:38 Procedure End Time: 9:45 Procedure Staff Name Function Ahsan Mcarthur MD Performing Physician Jj Bowles RT Monitor Carmencita Blackwell, RN Nurse Pamela Streeter RT Title Department Manager Procedure Data Cath Procedure Fluoroscopy Diagnostic fluoroscopy Total fluoroscopy Time: 0 time: 0 min min Diagnostic fluoroscopy Total fluoroscopy dose: 0 dose: 0 mGy mGy Contrast Material Contrast Material Type Amount (ml) Isovue 300 0 Estimated blood loss: 0 ml Procedure Complications No complications Procedure Medications Medication Administration Route Dosage Oxygen etCO2 Nasal cannula 2 l/min 0.9% NaCl I.V. 100 ml/hr Refer to Anesthesia Notes for Sedation Medications Hemodynamics Rest Heart Rate: 108 (bpm) Snapshots Pre Cath Intra NCS Post Cath Vital Signs Time Heart Resp SPO2 etCO2 NIBP (mmHg) Rhythm Pain Sedation Rate (ipm) (%) (mmHg) Status Level (bpm) 9:32:52 104 16 97 15 179/113(138) NSR 0 (11) 10(A) , No pain 9:37:18 90 12 97 30.9 160/108(144) NSR 0 (11) 10(A) , No pain 9:41:36 49 12 91 33.9 137/60(99) NSR 0 (11) 10(A) , No pain 9:45:55 59 13 96 33.1 128/65(105) NSR 0 (11) 10(A) , No pain Medications Time Medication Route Dose Verified Delivered Reason Notes Effectiven ess by by 9:28:52 Oxygen etCO2 2 Carmencita Carmencita for low Nasal l/min Rosalva Blackwell, 02 sats cannula RN RN 9:29:07 0.9% NaCl I.V. 100 Carmencita Carmencita Per ml/hr Rosalva Blackwell, physician RN RN 9:29:11 Refer to Carmencita Carmencita Anesthesia Rosalva Blackwell, Notes for RN RN Sedation Medications Procedure Log Time Note 8:52:16 Informed consent obtained and on chart 8:55:37 Admit Source: Emergency department 8:55:45 Procedure Status Cardioversion. 8:55:46 Time tracking: Regular hours (M-F 7:00 - 5:00) 8:55:49 Plan of Care:Hemodynamics will remain stable., Cardiac rhythm will remain stable., Comfort level will be maintained., Respiratory function will remain adequate., Patient/ family verbilizes understanding of procedure., Procedure tolerated without complication., Recovers from procedure without complications.. 8:57:12 H&P Date Dictated: 05/09/2020 Within 30 days and on chart.. 8:57:40 Lab Result : Creatinine 1.1 mg/dl 8:57:40 Lab Result : BUN 22 mg/dl 8:57:40 Lab Result : Hemoglobin 14.1 g/dl 8:57:40 Lab Result : Hematocrit 41.5 % 9:12:45 Jj Bowles RT(R) sent for patient. Start room use. 9:15:58 Von Curiel CRNA present and monitoring patient for TIVA. 9:25:40 Patient arrived from Med II to CCL 1. Patient remains on bed/stretcher for procedure. 9:25:41 Warm blankets applied, and christian hugger turned on for patient comfort. 9:25:41 Correct patient and procedure confirmed by team. 9:25:42 ECG and BP/O2 sat monitors applied to patient. 9:25:44 Pre-procedure instructions explained to patient. 9:25:45 Pre-op teaching completed and patient verbalized understanding. 9:25:46 Family unavailable. 9:25:48 Patient NPO since Midnight. 9:25:56 Patient allergic to Other allergyPCN 9:25:57 Is the patient allergic to Iodine/contrast media? No. 9:27:23 Is patient on blood thinner?Yes 9:27:28 ACC The patient was administered the following blood thiners within the last 24 hours: Eliquis 9:27:30 Patient diabetic? No. 9:27:33 Previous problem with sedation/anesthesia? No ? 9:28:35 Snore? Yes 9:28:36 Sleep apnea? No 9:28:37 Deviated septum? No 9:28:38 Opens mouth fully? Yes 9:28:38 Sticks out tongue? Yes 9:28:40 Airway obstruction? No ? 9:28:42 Dentures? No ? 9:28:52 Oxygen 2 l/min etCO2 Nasal cannula was administered by Carmencita Blackwell RN; for low 02 sats; Verbal order read back and verified. 9:28:53 IV patent on arrival in right wrist with 0.9% NaCl at O. 9:28:55 Lab results completed and on chart. 9:28:58 Alarms reviewed by Carter Schrader 9:29:07 0.9% NaCl 100 ml/hr I.V. was administered by Carmencita Blackwell RN; Per physician; Verbal order read back and verified. 9:29:11 Refer to Anesthesia Notes for Sedation Medications was administered by Carmencita Blackwell, RN; ; Verbal order read back and verified. 9::37 Vital chart was started 9::38 Baseline sample Acquired. 9::42 Rhythm: atrial fibrillation 9::43 Full Disclosure recording started 9:37:15 Physician arrived 9:37:15 --------ALL STOP TIME OUT------ 9:37:16 Final Timeout: patient, procedure, and site verified with staff and physician. All members of the team are in agreement. 9:37:22 Fire Safety Assessment: E--There are other possible contributors. 9:37:25 Physical assessment completed. ASA score P 4 - A patient with severe systemic disease that is a constant threat to life as per Ahsan Mcarthur MD. 9:37:30 Sedation plan: TIVA Medication:Propofol 9:38:17 Quick combo pads placed on patients chest and back. 9:38:20 Procedure started. 9:38:45 Defibrillator synced and charged to 200 Joules. 9:38:46 Shock delivered. 9:38:56 Patient cardioverted to sinus rhythm . 9:39:10 Procedure ended.(Physican Out) 9:40:22 Fluoroscopy time 00.00 minutes. 9:40:23 Fluoroscopy dose: 0 mGy 9:40:23 Flurop Dose total: 0 9:41:17 Dose Area Product 0 mGy/cm. 9:41:21 Contrast amount:Isovue 300 0ml. 9:42:17 Maximum allowable dose exceeded? No. 9:42:47 Post-procedure physical assessment completed. ASA score P 4 - A patient with severe systemic disease that is a constant threat to life as per Ahsna Mcarthur MD. 9:42:55 Post procedure rhythm: sinus rhythm 9:42:57 Estimated blood loss: 0 ml 9:42:58 Post procedure instruction explained to patient.Patient verbalizes understanding. 9:42:59 Patient needs reinforcement of post procedure teaching. 9:43:45 Procedure and supply charges have been captured, reviewed, submitted and are correct. 9:43:47 Procedure Complication : No complications 9:45:35 Vital chart was stopped 9:45:38 Operative report dictated upon procedure completion. 9:45:39 See physician's report for complete and final results. 9:45:41 Report given to PCU. 9:45:44 Patient transfered to PCU with Stretcher. 9:45:45 Procedure ended. 9:45:45 Full Disclosure recording stopped 9:50:16 End room use (Document Last) 9:50:38 End room use (Document Last) 9:50:59 Jj Bowles RT(R) was relieved by Jj Bowles RT(R) as monitoring person 9:50:59 End room use (Document Last) 9:51:22 End room use (Document Last) 9:51:28 Jj Bowles RT(R) was relieved by Jj Bowles RT(R) as monitoring person 9:51:29 End room use (Document Last) Signature Audit Stacy Stage Time Signature Unsigned Intra-Procedure 05/11/2020 Jj Bolwes 9:50:38 AM RT(R) Intra-Procedure 05/11/2020 Carmencita Blackwell, 9:51:22 AM RN Intra-Procedure 05/11/2020 Ahsan Martinez 9:52:04 AM Eris PEREZ Signatures Performing Physician : Signature : Ahsan Mcarthur MD Date : Time : Monitor : Jj Bowles RT Signature : Date : Time : Nurse : Carmencita Blackwell, Signature : RN Date : Time : [id number] [place] [address]
--- NOTE | ~2020-05-08 | EC ---
PATIENT:KAREN CAROLINA DATE OF SERVICE: 05/08/20 SEX: F MEDICAL RECORD: [id number] DATE OF : 37 LOCATION:D.M2 D.213 AGE OF PATIENT: 84 ADMISSION DATE: 05/08/20 REFERRING PHYSICIAN: INTERPRETING PHYSICIAN: MARQUES BROCK MD ECHOCARDIOGRAM REPORT ECHO CHARGES 4 ECHO COMPLETE Date: 05/09/20 CLINICAL DIAGNOSIS: AFOB ECHOCARDIOGRAPHIC MEASUREMENTS (adult normal given) AC root (d.<3.7cm) 3.2 cm LV Septum d (<1.2 cm> 1.5 cm Valve Excursion 1.5 cm LV Septum (systole) 1.7 cm Left Atria (s.<4.0cm> 3.3 cm LVPW d(<1.2cm) 1.5 cm RV (d.<2.3cm) 3.1 cm LVPW (sytole) 1.7 cm LV diastole(<5.6CM) 3.7 cm MV E-F(>70mm/sec) cm LV systole 2.7 cm LVOT Diameter 1.6 cm MV exc.(>10mm) 1.8 cm Est.ejection fraction (50-75%) % DOPPLER: LVIT cm/sec A cm/sec E 102.0 cm/sec LA cm/sec RVSP 41 mmHg LVOT 77 cm/sec AOP1/2T m/s Asc. Ao 121 cm/sec RVOT 62 cm/sec RA cm/sec PA 66 cm/sec AV Gradient Peak 5.90 mmHg AV Mean 3.46 mmHg AV Area 1.5 cm MV Gradient Peak 6.19 mmHg MV Mean 2.89 mmHg MV Area cm COMMENTS: Ict Sales Assistant: 2 ADÁN REAVES Hog Pusher: 3 Dr. Barnard TAPE# PACS Pericardial Effusion N DATE OF SERVICE: Adequate 2D, color flow imaging, spectral Doppler, and M-Mode. LVH is present. LV internal dimensions are normal. Wall motion is normal. EF is greater than or equal to 55%. Aortic valve is sclerotic. No evidence of stenosis by Doppler interrogation. Mild AI by color flow imaging. Left atrium is normal. Mitral valve shows no prolapse. Trace MR. Right-sided chambers are grossly normal. Mild TR. ECHOCARDIOGRAM REPORT [id number] KAREN CAROLINA TRANSINT:[id number] Voice Confirmation ID: [id number] DOCUMENT ID: [id number] MARQUES BROCK MD CC: [id number] DICTATION DATE: 05/10/20 1040 ONCOLOGY NURSE NAVIGATOR: 05/10/20 1526 ADM IN [place] [id number] [place] [address]
--- NOTE | ~2020-05-08 | CN ---
PATIENT NAME:KAREN CAROLINA MEDICAL RECORD: [id number] : 37 LOCATION:[facility] D.2137 ADMIT DATE: 05/08/20 ACCOUNT: [id number] CONSULTING PHYSICIAN: MARQUES BROCK MD REFERRING PHYSICIAN: MARSHA DE LA GARZA MD DATE OF CONSULTATION: 05/09/2020 HISTORY OF PRESENT ILLNESS: An 84-year-old female with history of atrial fibrillation, controlled with class III sotalol as well as chronic anticoagulation with Eliquis, began having upper respiratory symptomatology approximately 3 days ago with cough, presented to the ER with palpitations, shortness of breath. PAST MEDICAL HISTORY: Includes; 1. History of hypertension. 2. Hyperlipidemia. 3. Atrial fibrillation. 4. Dyslipidemia. 5. Cerebrovascular accident status post carotid endarterectomy. ALLERGIES: PENICILLIN. MEDICATIONS: Typically include Eliquis 5 mg p.o. b.i.d., sotalol 80 mg p.o. b.i.d., pravastatin 10 mg p.o. every day, lisinopril/hydrochlorothiazide 10/25 every day. SOCIAL HISTORY: Nonsmoker, social drinker. REVIEW OF SYSTEMS: The patient reports easy bruising but reports no swollen glands. The patient reports no fever, no night sweats, no significant weight gain, no significant weight loss. No significant exercise tolerance. The patient reports no dry eyes, no irritation, no vision change. Patient reports no difficulty hearing and no ear pain. Patient reports no frequent nose bleeds or nose and sinus problems. Patient reports on arm pain on exertion. No shortness of breath while lying down. No history of heart murmur. Patient reports no cough, no wheezing or coughing up blood. Patient reports no abdominal pain, no vomiting. Normal appetite. No diarrhea and not vomiting blood. No nausea and no constipation. Patient reports no incontinence. No difficulty urinating. No hematuria. No increased frequency. Patient reports no muscle aches. No weakness, no arthralgias, no back pain. No swelling of the extremities. Patient reports no abnormal mole, no jaundice, no rashes. Reports no loss of consciousness. No weakness and no numbness. No seizures, dizziness, or headaches. The patient reports no depression, no sleep disturbance, feeling safe in a relationship and no alcohol abuse. Patient reports on fatigue. Reports no runny nose or sinus pressure. No itching, no hives, and no frequent sneezing. PHYSICAL EXAMINATION: GENERAL: Well-developed, well-nourished. No acute distress. VITAL SIGNS: Blood pressure 113/86, pulse 89 and regular. HEENT: Normocephalic, atraumatic. NECK: No bruits are noted. HEART: Irregular, rate is controlled. LUNGS: Good air excursion. ABDOMEN: Soft, nontender. CONSULT REPORT [id number] KAREN CAROLINA EXTREMITIES: Pulse 2+. No edema. IMPRESSION AND PLAN: Atrial fibrillation. The patient was in normal sinus rhythm as recently as January of this year. We will increase sotalol from 80 to 120 b.i.d. Check echocardiographic study, already has cerebrovascular accident prophylaxis in the form of her Eliquis. We will follow with you. TRANSINT:[id number] Voice Confirmation ID: [id number] DOCUMENT ID: [id number] MARQUES BROCK MD CC: [id number] DICTATION DATE: 05/09/20 1039 FIBERGLASSER: 05/09/20 1552 ADM IN [facility] [address] [id number]
--- NOTE | ~2020-05-08 | OP ---
PATIENT NAME: KAREN CAROLINA MEDICAL RECORD: [id number] :37 LOCATION:D. D.2137 ADMISSION DATE:05/08/20 SURGEON: MARQUES BROCK MD DATE OF OPERATION: 05/11/2020 PROCEDURE: Cardioversion. DESCRIPTION OF PROCEDURE: After general sedation via TIVA via anesthesia, a single synchronized shock was successful in restoring atrial fibrillation to normal sinus rhythm. IMPRESSION: Successful cardioversion on Karen Carolina. During the procedure, the patient was monitored continuously with pulse oximetry, telemetry, and noninvasive blood pressure monitoring. NTS:[id number] Voice Confirmation ID: [id number] DOCUMENT ID: [id number] MARQUES BROCK MD CC: [id number] DICTATION DATE: 05/11/20948 TOLL OPERATOR: 05/11/20 1820 ADM IN [facility] [address] [id number]
[2020-05-08] MEDS ORDERED: PRAVACHOL20 MG PO (14:17)
[2020-05-08 15:06] LABS: BASOPHILS 0.3 % (0-2); EOSINOPHILS 1.9 % (0-7); HEMATOCRIT 39.2 % (36.0-48.0); HEMOGLOBIN 13.3 g/dL (12-16); IMMATURE GRANULOCYTES 0.7 % (0-5); LYMPHOCYTES 18.5 % (15-50); MCH 30.9 pg (26.0-34.0); MCHC 33.9 g/dL (31.0-37.0); MEAN PLATELET VOLUME 8.2 fL (7.4-10.4); MONOCYTES 5.9 % (2-11); NEUTROPHILS 72.7 % (40-80); RBC 4.31 10x6/uL (4.00-5.40); RDW 12.9 % (11.5-14.5)
[2020-05-08 15:13] LABS: PLATELET COUNT 439 10x3/uL (130-400)
[2020-05-08 15:17] LABS: CALC OSMOLALITY 266 mosm/kg (275-300); CARBON DIOXIDE 23.9 mmol/L (21.0-32.0); CHLORIDE - SERUM 98 mmol/L (98-107); CREATININE - SERUM 0.9 mg/dL (0.6-1.3); GLUCOSE 139 mg/dL (74-106); POTASSIUM - SERUM 4.4 mmol/L (3.5-5.1); SODIUM 131 mmol/L (136-145); UREA NITROGEN 17 mg/dL (7-18); eGFR NON AFRICAN AMERICAN 63 mL/min (90-120)
[2020-05-08 15:18] LABS: APTT 30.1 SECONDS (22.8-39.4); INR 1.06 (0.85-1.17); PROTIME 13.7 SECONDS (11.6-15.0)
[2020-05-08 15:20] LABS: D-DIMER-QUANTITATIVE 0.59 ug/mLFEU (0.20-0.54)
[2020-05-08 15:35] LABS: ALBUMIN 3.2 g/dL (3.4-5.0); ALKALINE PHOSPHATASE 82 U/L (30-120); ALT (SGPT) 50 U/L (10-68); BILIRUBIN - TOTAL 0.34 mg/dL (0.2-1.3); CKMB 1.2 U/L (0.0-3.6); CREATINE KINASE 48 UL (21-215); PRO BNP 3390 pg/mL (0-450); PROTEIN - SERUM 6.8 g/dL (6.4-8.2); TROPONIN-I 0.032 ng/mL (0.000-0.060)
[2020-05-08 16:17] VITALS: BP 164/94
[2020-05-08 20:55] VITALS: BP 141/93
[2020-05-08 22:20] LABS: CKMB 1.6 U/L (0.0-3.6); CREATINE KINASE 58 UL (21-215); TROPONIN-I 0.022 ng/mL (0.000-0.060)
[2020-05-08 23:34] LABS: BILIRUBIN NEGATIVE (NEGATIVE); KETONE NEGATIVE (NEGATIVE); NITRITE NEGATIVE (NEGATIVE); UROBILINOGEN NORMAL mg/dL (< 2)
[2020-05-08 23:36] VITALS: BP 141/93; BMI 24.3
[2020-05-09] VITALS (7 sets, daily range): BP systolic 113–149; BP diastolic 65–90; Ht 170.2 cm; Wt 70.3 kg
[2020-05-09 05:23] LABS: BASOPHILS 0.1 % (0-2); EOSINOPHILS 0 % (0-7); HEMATOCRIT 40.1 % (36.0-48.0); HEMOGLOBIN 13.5 g/dL (12-16); IMMATURE GRANULOCYTES 0.6 % (0-5); MCH 30.5 pg (26.0-34.0); MCHC 33.7 g/dL (31.0-37.0); MCV 90.7 fL (80.0-100.0); MEAN PLATELET VOLUME 8.4 fL (7.4-10.4); MONOCYTES 2.2 % (2-11); NEUTROPHILS 89.1 % (40-80); PLATELET COUNT 431 10x3/uL (130-400); RBC 4.42 10x6/uL (4.00-5.40); WBC 12.5 10x3/uL (4.8-10.8)
[2020-05-09 05:52] LABS: C-REACTIVE PROTEIN 1.2 mg/dL (0.0-0.9); CALC OSMOLALITY 268 mosm/kg (275-300); CARBON DIOXIDE 24.6 mmol/L (21.0-32.0); CHLORIDE - SERUM 97 mmol/L (98-107); CKMB 1.2 U/L (0.0-3.6); CREATINE KINASE 57 UL (21-215); CREATININE - SERUM 0.7 mg/dL (0.6-1.3); FERRITIN 138 ng/mL (3-244); GLUCOSE 136 mg/dL (74-106); MAGNESIUM - SERUM 2.1 mg/dL (1.8-2.4); PHOSPHOROUS 3.4 mg/dL (2.5-4.9); SODIUM 133 mmol/L (136-145); TROPONIN-I 0.027 ng/mL (0.000-0.060); UREA NITROGEN 15 mg/dL (7-18); eGFR NON AFRICAN AMERICAN 85 mL/min (90-120)
[2020-05-09 05:54] LABS: POTASSIUM - SERUM 3.7 mmol/L (3.5-5.1)
[2020-05-09 06:50] LABS: ERYTHROCYTE SEDIMENTATION RATE 58 mm/hr (0-30)
[2020-05-09 10:35] LABS: CKMB 1.1 U/L (0.0-3.6); CREATINE KINASE 53 UL (21-215)
--- NOTE | 2020-05-09 18:31 | NUR ---
PT ALERT AND ORIENTED. MOVED AROUND ROOM BY SELF TODAY. COVID RESULTS NEGATIVE. NO COMPLAINTS OR CONCERNS AT THAT TIME. CL IN REACH, SRX2.
--- NOTE | 2020-05-09 18:55 | NUR ---
REPORT RECEIVED, PT CARE ASSUMED. WROTE NAME ON BOARD. PT SITTING UP IN BED WATCHING TV, AAOX4. DENIES ANY NEEDS AT THIS TIME. BED IN LOWEST, SRX1, CALL LIGHT WITHIN REACH. WILL CTM.
--- NOTE | 2020-05-09 19:25 | NUR ---
I have reviewed this patient and I concur with the Shift Assessment completed by the Licensed Practical Nurse today this shift.
[2020-05-10 00:02] VITALS: BP 128/76; BP 97/65
[2020-05-10 04:20] VITALS: BP 128/78
[2020-05-10 06:19] LABS: BASOPHILS 0.2 % (0-2); EOSINOPHILS 2.2 % (0-7); HEMATOCRIT 38.9 % (36.0-48.0); IMMATURE GRANULOCYTES 0.4 % (0-5); LYMPHOCYTES 30.2 % (15-50); MCH 30.4 pg (26.0-34.0); MCHC 33.4 g/dL (31.0-37.0); MCV 91.1 fL (80.0-100.0); MEAN PLATELET VOLUME 8.5 fL (7.4-10.4); MONOCYTES 6.6 % (2-11); NEUTROPHILS 60.4 % (40-80); PLATELET COUNT 429 10x3/uL (130-400); RBC 4.27 10x6/uL (4.00-5.40); RDW 13.3 % (11.5-14.5); WBC 14.6 10x3/uL (4.8-10.8)
[2020-05-10 06:38] LABS: ANION GAP 9.7 mmol/L (8-16); CALCIUM 8.7 mg/dL (8.5-10.1); CARBON DIOXIDE 29.8 mmol/L (21.0-32.0); MAGNESIUM - SERUM 2.1 mg/dL (1.8-2.4); PHOSPHOROUS 3.8 mg/dL (2.5-4.9); POTASSIUM - SERUM 3.5 mmol/L (3.5-5.1)
--- NOTE | 2020-05-10 07:15 | NUR ---
RECEIVE SHIFT REPORT. RESTING IN BED WITH TV ON. DENIES ANY NEEDS AT THIS TIME. CALL LIGHT IN REACH. WILL CONTINUE PLAN OF CARE AND SAFETY PRECAUTIONS.
[2020-05-10 08:46] VITALS: BP 151/76
[2020-05-10 11:40] VITALS: BP 148/79
[2020-05-10 15:00] VITALS: BP 145/107
--- NOTE | 2020-05-10 19:10 | NUR ---
REPORT RECEIVED, PT CARE ASSUMED. WROTE NAME ON BOARD. PT SITTING UP IN BED, WATCHING TV, AAOX4. DENIES PALPITATIONS, PAIN, ANY NEEDS AT THIS TIME. BED IN LOWEST, SRX1, CALL LIGHT WITHIN REACH. WILL CTM.
[2020-05-10 20:00] VITALS: BP 146/68
[2020-05-11] VITALS: BP 146/66
--- NOTE | 2020-05-11 02:00 | NUR ---
2044 PT C/O PIV TO RIGHT FOREARM "STINGING AND LEAKING." REMOVED, TIP INTACT, NO S/S OF BLEEDING AT SITE. 2229 CONSENTS FOR PROCEDURE IN AM SIGNED AND PLACED IN CHART. QUESTIONS ANSWERED. 199 NEW PIV RESITED TO RIGHT HAND, 24G, ATTEMPTS X3, TOLERATED WELL. IV ABX INFUSING WITHOUT ISSUE.
[2020-05-11 05:30] LABS: BASOPHILS 0.1 % (0-2); EOSINOPHILS 0.1 % (0-7); HEMATOCRIT 41.5 % (36.0-48.0); HEMOGLOBIN 14.1 g/dL (12-16); IMMATURE GRANULOCYTES 0.4 % (0-5); LYMPHOCYTES 9.1 % (15-50); MCH 30.7 pg (26.0-34.0); MCV 90.2 fL (80.0-100.0); MEAN PLATELET VOLUME 8.3 fL (7.4-10.4); MONOCYTES 4.9 % (2-11); NEUTROPHILS 85.4 % (40-80); PLATELET COUNT 487 10x3/uL (130-400); RDW 13.1 % (11.5-14.5); WBC 16.8 10x3/uL (4.8-10.8)
[2020-05-11 05:59] LABS: ANION GAP 12.3 mmol/L (8-16); CALCIUM 8.7 mg/dL (8.5-10.1); CREATININE - SERUM 1.1 mg/dL (0.6-1.3); MAGNESIUM - SERUM 2.2 mg/dL (1.8-2.4); PHOSPHOROUS 3.8 mg/dL (2.5-4.9); POTASSIUM - SERUM 3.3 mmol/L (3.5-5.1)
--- NOTE | 2020-05-11 07:20 | NUR ---
RECIEVE REPORT. ALERT AND ORIENTED X4. RESTING IN BED. RT AT BEDSIDE. DENIES ANY NEEDS. CONTROLLED AFIB 96 ON TELEMETRY. CONTINUE PLAN OF CARE AND SAFETY PRECAUTIONS.
[2020-05-11 10:15] VITALS: BP 161/80
[2020-05-11 13:05] VITALS: BP 145/63
[2020-05-11 20:00] VITALS: BP 128/59
[2020-05-12] VITALS: BP 149/66
[2020-05-12 04:00] VITALS: BP 156/60
[2020-05-12 06:13] LABS: BASOPHILS 0.2 % (0-2); EOSINOPHILS 1.9 % (0-7); HEMATOCRIT 38.5 % (36.0-48.0); HEMOGLOBIN 13.1 g/dL (12-16); IMMATURE GRANULOCYTES 0.6 % (0-5); LYMPHOCYTES 35.3 % (15-50); MCV 91.2 fL (80.0-100.0); MEAN PLATELET VOLUME 8.2 fL (7.4-10.4); MONOCYTES 7.7 % (2-11); NEUTROPHILS 54.3 % (40-80); PLATELET COUNT 470 10x3/uL (130-400); RBC 4.22 10x6/uL (4.00-5.40); RDW 13.2 % (11.5-14.5); WBC 12.8 10x3/uL (4.8-10.8)
[2020-05-12 06:57] LABS: ANION GAP 7.6 mmol/L (8-16); CALCIUM 8.9 mg/dL (8.5-10.1); CARBON DIOXIDE 30.5 mmol/L (21.0-32.0); MAGNESIUM - SERUM 2.3 mg/dL (1.8-2.4); PHOSPHOROUS 3.9 mg/dL (2.5-4.9); POTASSIUM - SERUM 3.1 mmol/L (3.5-5.1)
[2020-05-12 07:00] VITALS: BP 130/58
--- NOTE | 2020-05-12 07:21 | NUR ---
RECIEVE REPORT. ALERT AND ORIENTED X4. RESTING IN BED. DENIES ANY NEEDS. NO SIGNS OF DISTRESS. SINUS SHUKRI 54 ON TELEMETRY. CONTINUE PLAN OF CARE AND SAFETY PRECAUTIONS.
[2020-05-12] MEDS ORDERED: BETAPACE 120 M120 MG PO (10:05)
[2020-05-12] MEDS ORDERED: MUCINEX600 MG PO (10:05)
[2020-05-12] MEDS ORDERED: TESSALON PERLE100 MG PO (10:05)
--- NOTE | 2020-05-12 13:45 | NUR ---
Nutrition Follow-up: Pt reports good appetite. Denies N/V/C/D. Noted plans to d/c today. Diet: Cardiac Wt: 155# (05/09) Last BM: 05/11 Labs noted: Na 132, K+ 3.1 Meds noted: Lasix, zinc sulfate, vitamin D, vitamin C, Protonix, electrolyte protocol -RD following.
--- NOTE | 2020-05-12 14:24 | MORECARE ---
CASE MANAGEMENT DISCHARGE SUMMARY PATIENT: KAREN CAROLINA UNIT: [id number] ADM DATE: 05/08/20 AGE: 84 : 36 SEX: F ROOM/BED: D.1597 AUTHOR: RUDI NEFF PHYSICIAN: REFERRING PHYSICIAN: MARSHA DE LA GARZA MD DATE OF SERVICE: 05/12/20 Discharge Plan Patient Name: KAREN CAROLINA Facility: [facility]:[place] : 1935 Planned Disposition: Home or Self Care Anticipated Discharge Date: Discharge Date: Expected LOS: Initial Reviewer: [email or web address] Initial Review Date: 05/08/2020 Generated: 05/12/20 3:23 pm Patient Name: KAREN CAROLINA Page 05108 at 1424 All edits/amendments must be made on the electronic document DICTATION DATE: 05/12/20 142 TRACK RIDER: JEANCARLOS 05/12/20 1424 RPT#: [id number] DC DATE: STATUS: ADM IN [facility] [address] [place] [address] END OF REPORT
--- NOTE | 2020-05-12 14:32 | MORECARE ---
CASE MANAGEMENT DISCHARGE SUMMARY PATIENT: KAREN CAROLINA UNIT: [id number] ADM DATE: 05/08/20 AGE: 84 : 36 SEX: F ROOM/BED: D.2020 AUTHOR: RUDI NEFF PHYSICIAN: REFERRING PHYSICIAN: MARSHA DE LA GARZA MD DATE OF SERVICE: 05/12/20 Discharge Plan Patient Name: KAREN CAROLINA Facility: [facility]:[place] : 1935 Planned Disposition: Home or Self Care Anticipated Discharge Date: Discharge Date: Expected LOS: 0 Initial Reviewer: [email or web address] Initial Review Date: 05/08/2020 Generated: 05/12/20 3:32 pm DCPIA - Discharge Planning Initial Assessment Updated by [email or web address]: Joanna Loza on 05/12/20 2:28 pm * Is the patient Alert and Oriented? Yes * How many steps to enter\exit or inside your home? 0/0 * PCP paula * Pharmacy [facility] * Preadmission Environment Home with Family * ADLs Independent * Equipment None * List name and contact numbers for known caregivers / representatives who currently or will assist patient after discharge: keily olivares [phone] * Verbal permission to speak to the caregivers and representatives has been obtained from the patient. Yes * Community resources currently utilized None * Additional services required to return to the preadmission environment? No * Can the patient safely return to the preadmission environment? Yes * Has this patient been hospitalized within the prior 30 days at any hospital? No Last DP export: 05/12/20 1:24 p Patient Name: KAREN CAROLINA Page 31543 at 1432 All edits/amendments must be made on the electronic document DICTATION DATE: 05/12/201431 NUTRITIONAL CHEMIST: JEANCARLOS 05/12/201431 RPT#: [id number] DC DATE: STATUS: ADM IN [facility] [address] [place] [address] END OF REPORT
--- NOTE | 2020-05-12 14:40 | MORECARE ---
CASE MANAGEMENT DISCHARGE SUMMARY PATIENT: KAREN CAROLINA UNIT: [id number] ADM DATE: 05/08/20 AGE: 84 : 36 SEX: F ROOM/BED: D.5238 AUTHOR: RUDI NEFF PHYSICIAN: REFERRING PHYSICIAN: MARSHA DE LA GARZA MD DATE OF SERVICE: 05/12/20 Discharge Plan Patient Name: KAREN CAROLINA Facility: [facility]:[place] : 1935 Planned Disposition: Home or Self Care Anticipated Discharge Date: Discharge Date: Expected LOS: 0 Initial Reviewer: [email or web address] Initial Review Date: 05/08/2020 Generated: 05/12/20 3:40 pm Comments DCP- Discharge Planning Updated by [email or web address]: Joanna Loza on 05/12/20 1:[address] Patient Name: KAREN CAROLINA Admission Status: ER Accout number: [id number] Admission Date: 05-08-2020 : 1935 Admission Diagnosis:PALPITATIONS Attending: TAZ Current LOS: 4 Anticipated DC Date: Planned Disposition: Home or Self Care Primary Insurance: MEDICARE A & B Discharge Planning Comments: CM met with patient to complete initial dc planning assessment. CM educated patient on the CM role and verbal consent given by patient to complete assessment. CM verified patient's address, phone number, and emergency contact phone numbers. Patient lives at home with her Kesha [phone]. At discharge patient plans to return home and feels this is a safe discharge. CM discussed availability of home health, rehab services, and medical equipment. Patient denied known discharge needs at this time. SHELIA declination signed for DME, IP rehab, or HH services. Pt states she goes to the [facility] 3 or more times a week and does not need any help. Transportation provider at discharge will be KESHA who is at bedside. CM will continue to follow and will assist as needed with dc plans/needs. DC IMM delivered, explained, signed by the patient, and placed in chart. Signed form also left with the patient. Customer Development Representative: Joanna Loza DCPIA - Discharge Planning Initial Assessment Updated by [email or web address]: Joanna Loza on 05/12/20 2:28 pm * Is the patient Alert and Oriented? Yes * How many steps to enter\exit or inside your home? 0/0 * PCP paula * Pharmacy [facility] * Preadmission Environment Home with Family * ADLs Independent * Equipment None * List name and contact numbers for known caregivers / representatives who currently or will assist patient after discharge: kesha olivares [phone] * Verbal permission to speak to the caregivers and representatives has been obtained from the patient. Yes * Community resources currently utilized None * Additional services required to return to the preadmission environment? No * Can the patient safely return to the preadmission environment? Yes * Has this patient been hospitalized within the prior 30 days at any hospital? No Last DP export: 05/12/20 1:33 p Patient Name: KAREN CAROLINA Page [phone] at 1440 All edits/amendments must be made on the electronic document DICTATION DATE: 05/12/20 144 INCIDENT COORDINATOR: JEANCARLOS 05/12/20 1440 RPT#: [id number] DC DATE: STATUS: ADM IN [facility] [address] [place] [address] END OF REPORT
--- NOTE | 2020-05-12 14:59 | NUR ---
ALERT AND ORIENTED X4. SITTING UP IN BED. DISCHARGE INSTRUCTIONS GIVEN VERBALLY AND WRITTEN. DISCHARGE PAPERS SIGNED ON CHART. DC RT WRIST IV TIP INTACT. ESCORT TO [place] VIA WHEELCHAIR. REMAINS FREE FROM INJURY.
--- NOTE | 2020-05-12 16:50 | MORECARE ---
CASE MANAGEMENT DISCHARGE SUMMARY PATIENT: KAREN CAROLINA UNIT: [id number] ADM DATE: 05/08/20 AGE: 84 : 37 SEX: F ROOM/BED: D.8912 AUTHOR: [email or web address] PHYSICIAN: REFERRING PHYSICIAN: MARSHA DE LA GARZA MD DATE OF SERVICE: 05/12/20 Discharge Plan Patient Name: KAREN CAROLINA Facility: [facility]:[place] : 1935 Planned Disposition: Home or Self Care Anticipated Discharge Date: Discharge Date: 05/12/2020 Expected LOS: 0 Initial Reviewer: [id number] Initial Review Date: 05/08/2020 Generated: 05/12/20 5:49 pm Comments DCP- Discharge Planning Updated by [email or web address]: Joanna Loza on 05/12/20 1:[address] Patient Name: KAREN CAROLINA Admission Status: ER Accout number: [id number] Admission Date: 05-08-2020 : 1935 Admission Diagnosis:PALPITATIONS Attending: TAZ Current LOS: 4 Anticipated DC Date: Planned Disposition: Home or Self Care Primary Insurance: MEDICARE A & B Discharge Planning Comments: CM met with patient to complete initial dc planning assessment. CM educated patient on the CM role and verbal consent given by patient to complete assessment. CM verified patient's address, phone number, and emergency contact phone numbers. Patient lives at home with her Kesha [phone]. At discharge patient plans to return home and feels this is a safe discharge. CM discussed availability of home health, rehab services, and medical equipment. Patient denied known discharge needs at this time. SHELIA declination signed for DME, IP rehab, or HH services. Pt states she goes to the [facility] 3 or more times a week and does not need any help. Transportation provider at discharge will be KESHA who is at bedside. CM will continue to follow and will assist as needed with dc plans/needs. DC IMM delivered, explained, signed by the patient, and placed in chart. Signed form also left with the patient. Paint Technician: Joanna Loza DCPIA - Discharge Planning Initial Assessment Updated by [id number]: Joanna Loza on 05/12/20 2:28 pm * Is the patient Alert and Oriented? Yes * How many steps to enter\exit or inside your home? 0/0 * PCP [facility] * [facility] * Preadmission Environment Home with Family * ADLs Independent * Equipment None * List name and contact numbers for known caregivers / representatives who currently or will assist patient after discharge: kesha olivares [phone] * Verbal permission to speak to the caregivers and representatives has been obtained from the patient. Yes * Community resources currently utilized None * Additional services required to return to the preadmission environment? No * Can the patient safely return to the preadmission environment? Yes * Has this patient been hospitalized within the prior 30 days at any hospital? No Coverage Notice Reviewer: [email or web address] Sabina Loza Notice Issued Date-Time: 05/12/2020 14:00 Notice Type: IM Discharge Notice Notice Delivered To: Patient Relationship to Patient: B2B Outside Sales Representative Name: Delivery Method: HAND - Hand Delivered Billie Days: Prior Verbal Notification: Recipient Understood Notice: Yes Recipient Signature: Yes Med Rec Note Co-signed by Attending: Coverage Notice Comment: imm delivered Reviewer: [email or web address] Sabina Loza Notice Issued Date-Time: 05/12/2020 14:00 Notice Type: Patient Choice Letter Notice Delivered To: Patient Relationship to Patient: B2B Outside Sales Representative Name: Delivery Method: HAND - Hand Delivered Billie Days: Prior Verbal Notification: Recipient Understood Notice: Yes Recipient Signature: Yes Med Rec Note Co-signed by Attending: Coverage Notice Comment: declination for hh, dme, or ip rehab Last DP export: 05/12/20 1:40 p Patient Name: KAREN CAROLINA Page [id number] at 1650 All edits/amendments must be made on the electronic document DICTATION DATE: 05/12/20 [address] OPERATOR: JEANCARLOS 05/12/201649 RPT#: [id number] DC DATE:05/12/20 STATUS: DIS IN [facility] [address] [place] [address] END OF REPORT
== END 2020-05-12 15:02 | disposition home or self-care (01) | DRG 308 ==
LOC: D.ER 13:56 → D.M2 17:53
PROVIDERS: Family Medicine; ADMIT Family Medicine; ATTEND Family Medicine
DX: I48.91 Unspecified atrial fibrillation (principal); J96.01 Acute respiratory failure with hypoxia; I50.21 Acute systolic (congestive) heart failure; E87.1 Hypo-osmolality and hyponatremia; I11.0 Hypertensive heart disease with heart failure; E78.5 Hyperlipidemia, unspecified; Z79.01 Long term (current) use of anticoagulants; Z86.73 Personal history of transient ischemic attack (TIA), and cerebral infarction without residual deficits